=== PATIENT | female | born 1960 | race Caucasian/White ===

== ENCOUNTER → 2018-01-29 | Outpatient (CLI) | payer BC ==
[~2018-01-29] MED LIST: ASPIRIN 81M81 MG/TA2; AZO MENOPAUSE1 X PO; BACTRIM DS 8001 TAB PO; FLAGYL500 MG PO; HERBAL MEDS; LORTAB 7.5/5001 TAB PO; SINUS; TYLENOL; TYLENOL 325MG325 MG PO; ZOCOR5 MG PO; vitamins
== END ==
LOC: MC.RAD 14:00
DX: Z12.31 Encounter for screening mammogram for malignant neoplasm of breast (principal)

== ENCOUNTER → 2019-04-07 | Outpatient (CLI) | payer BC | LOC: MC.RAD 15:45 | DX: Z12.31 Encounter for screening mammogram for malignant neoplasm of breast (principal) ==

== ENCOUNTER → 2020-10-17 | Outpatient (CLI) | payer BC | LOC: MC.RAD 14:45 | DX: Z12.31 Encounter for screening mammogram for malignant neoplasm of breast (principal) ==

== ENCOUNTER → 2021-02-22 | Outpatient (CLI) | payer BC | LOC: COL.RAD 11:38 | DX: N85.8 Other specified noninflammatory disorders of uterus (principal); N95.0 Postmenopausal bleeding ==

== ENCOUNTER → 2023-07-24 | Outpatient (CLI) | payer BC ==
[~2023-07-24] MED LIST changes: +PREDNISONE20 MG PO
== END ==
LOC: MC.RAD 10:04
DX: Z12.31 Encounter for screening mammogram for malignant neoplasm of breast (principal)